=== PATIENT | female | born 1980 | race African-American/Black ===

== ENCOUNTER 2021-02-21 09:13 | Emergency (ER) | payer OTHER ==
[~2021-02-21] VITALS: Ht 165.1 cm; Wt 72.6 kg
--- NOTE | 2021-02-21 09:33 | NUR ---
TO ER BED 11, GENERALIZED BODY PAIN S/P CHIROPRACTOR 02/05. NO RELIEF W/ OTC PAIN MEDS. AAOX3, BREATHING EVEN AND NON LABORED, CONNECTED TO MONITOR
[2021-02-21 10:27] LABS: BASOPHILS % (AUTO) 0.3 % (0.0-2.0); EOSINOPHILS % (AUTO) 2.3 % (0.0-6.0); HEMATOCRIT 32 % (33-45); HEMOGLOBIN 9.7 g/dL (11.5-14.8); LYMPHOCYTES # (AUTO) 1.4 K/uL (0.8-4.8); LYMPHOCYTES % (AUTO) 16.5 % (20.0-44.0); MEAN CORPUSCULAR HGB CONC 31 g/dl (31.0-36.0); MEAN CORPUSCULAR VOLUME 72 fL (82-100); MONOCYTES # (AUTO) 0.8 K/uL (0.1-1.30); MONOCYTES % (AUTO) 9.8 % (2.0-12.0); NEUTROPHILS # (AUTO) 5.9 K/uL (1.8-8.9); NEUTROPHILS % (AUTO) 71.1 % (43.0-81.0); PLATELET COUNT (AUTO) 461 K/uL (150-450); RED BLOOD CELL COUNT(AUTO) 4.39 MIL/uL (4.0-5.2); WHITE BLOOD COUNT (AUTO) 8.3 K/uL (4.3-11.0)
[2021-02-21 10:38] LABS: CALCIUM, SERUM 8.7 mg/dL (8.5-10.1); CREATININE 0.7 mg/dL (0.6-1.3); POTASSIUM 4.8 mmol/L (3.5-5.1)
--- NOTE | 2021-02-21 10:49 | NUR ---
COVID SWAB DONE AND SENT
--- NOTE | 2021-02-21 12:06 | NUR ---
Patient discharged to home in stable condition. Written and verbal after care instructions given. Patient verbalizes understanding of instruction.
[2021-02-21 12:07] VITALS: BP 132/90
== END 2021-02-21 12:07 | disposition home or self-care (01) ==
LOC: ER 09:18
DX: M25.572 Pain in left ankle and joints of left foot (principal); M25.571 Pain in right ankle and joints of right foot; M79.10 Myalgia, unspecified site; Z20.822 Contact with and (suspected) exposure to COVID-19
CPT/HCPCS: 36415; 73610 ×2; 80048; 85025; 87426; 99284; C9803